=== PATIENT | female | born 1970 | race Caucasian/White ===

== ENCOUNTER 2016-09-15 10:35 | Emergency (ER) | payer OTHER ==
[~2016-09-15] VITALS: BP 131/74
[~2016-09-15 10:35] MED LIST: BUTA1CAP57 PO; CLONIPINE PO; STADOL NASAL SPRAY INH; TOPI100T24 PO; ZOLP10TA PO
[2016-09-15] MEDS ORDERED: KETOROLAC 30 MG/1 ML IM ONE (11:30)
[2016-09-15] MEDS ORDERED: OXYcodone/APAP 5/325MG TABLET PO ONE (11:30)
[2016-09-15] MEDS ORDERED: OXYcodone/APAP 5/325MG TABLET ONE (11:33)
[2016-09-15] MEDS ORDERED: KETOROLAC 30 MG/1 ML ONE (11:33)
== END 2016-09-15 13:00 | disposition home or self-care (01) ==
LOC: ED 12:50
DX: M54.41 Lumbago with sciatica, right side (principal); G43.909 Migraine, unspecified, not intractable, without status migrainosus; M25.551 Pain in right hip
CPT/HCPCS: 73502; 96372; 99284; J1885